=== PATIENT | female | born 1950 | race Caucasian/White ===

== ENCOUNTER 2016-10-17 02:51 | Emergency (ER) | payer MEDICARE, OTHER ==
[~2016-10-17] VITALS: Ht 167.6 cm; Wt 90.0 kg
[2016-10-17] MEDS ORDERED: SODIUM CHLORIDE FLUSH 10ML SYR IVF ONE (03:30)
[2016-10-17 03:43] LABS: HEMATOCRIT 34.3 % (34.6-47.8); WHITE BLOOD COUNT 7.7 x10^3/uL (3.4-10)
[2016-10-17 03:56] LABS: ASPARTATE AMINO TRANSFERASE 17 U/L (15-37); BLOOD UREA NITROGEN 25 mg/dL (7-18)
[2016-10-17 04:03] LABS: IS PT STATUS REG ER OR PRE ER? YES
[2016-10-17] MEDS ORDERED: FUROSEMIDE 20 MG/2 ML ONE (04:29)
[2016-10-17] MEDS ORDERED: FUROSEMIDE 40 MG/4 ML IV ONE (04:30)
[2016-10-17 06:12] VITALS: BP 144/57
== END 2016-10-17 06:13 | disposition home or self-care (01) ==
LOC: ED 06:07
DX: I11.0 Hypertensive heart disease with heart failure (principal); I50.9 Heart failure, unspecified; R60.0 Localized edema; Z88.0 Allergy status to penicillin; Z88.8 Allergy status to other drugs, medicaments and biological substances; E11.9 Type 2 diabetes mellitus without complications; Z95.5 Presence of coronary angioplasty implant and graft
CPT/HCPCS: 36415; 71010; 80053; 83880; 84484; 85025; 85610; 85730; 93005; 96374; 99285; J1940

== ENCOUNTER 2017-02-25 21:44 | Inpatient (IN) | payer MEDICARE, OTHER ==
[~2017-02-25] VITALS: Ht 167.6 cm; Wt 97.1 kg
[2017-02-25] MEDS ORDERED: ASPIRIN 81 MG TABLET CHEW PO ONE (23:00)
[2017-02-25] MEDS ORDERED: MORPHINE SULFATE 4 MG/ML, 1ML IVPush PRN (23:00)
[2017-02-25] MEDS ORDERED: ONDANSETRON 2MG/ML, 2ML IVPush ONE (23:00)
[2017-02-25 23:02] LABS: HEMATOCRIT 32.1 % (34.6-47.8); HEMOGLOBIN 10.8 g/dL (11.7-16.4)
[2017-02-25] MEDS ORDERED: MORPHINE SULFATE 4 MG/ML, 1ML ONE (23:04)
[2017-02-25] MEDS ORDERED: ONDANSETRON 2MG/ML, 2ML ONE (23:05)
[2017-02-25 23:22] LABS: BLOOD UREA NITROGEN 32 mg/dL (7-18)
[2017-02-25 23:25] LABS: IS PT STATUS REG ER OR PRE ER? YES
[2017-02-25] MEDS ORDERED: OMNIPAQUE 350 MG/ML, 100ML BOTTLE ONE (23:49)
[2017-02-26] MEDS ORDERED: SODIUM CHLORIDE 0.9%, 500ML IVBOLUS ONE
[2017-02-26] MEDS ORDERED: FLUO40CA9 PO (00:46)
[2017-02-26] MEDS ORDERED: LISI5TAB7 PO (00:47)
[2017-02-26] MEDS ORDERED: FURO-92 PO (00:47)
[2017-02-26] MEDS ORDERED: RESTORIL (00:48)
[2017-02-26] MEDS ORDERED: PANT40TA5 PO (00:48)
[2017-02-26] MEDS ORDERED: ASPI-496 PO (00:49)
[2017-02-26] MEDS ORDERED: NORT50CA PO (00:50)
[2017-02-26] MEDS ORDERED: AMLODIPINE (00:50)
[2017-02-26] MEDS ORDERED: ATOR40TA78 PO (00:51)
[2017-02-26] MEDS ORDERED: ENOXAPARIN 80 MG/0.8 ML ONE (00:57)
[2017-02-26] MEDS ORDERED: ENOXAPARIN 80 MG/0.8 ML SQ ONE (01:00)
[2017-02-26] MEDS ORDERED: NITROGLYCERIN SINGLE TAB 0.4 MG SL PRN (01:00)
[2017-02-26 02:00] VITALS: BP 116/56
[2017-02-26 02:03] VITALS: BP 116/56
[2017-02-26] MEDS ORDERED: hydrALAzine 20 MG/ML, 1ML IVPush PRN (04:30)
[2017-02-26] MEDS ORDERED: morphine SULFATE 10 MG/ML, 1ML IVPush PRN (04:30)
[2017-02-26] MEDS ORDERED: OXYcodone IR 5MG TABLET PO PRN (04:30)
[2017-02-26] MEDS ORDERED: HEPARIN 5,000 UNITS/ML, 1ML SQ SCH (04:30)
[2017-02-26] MEDS ORDERED: ENALAPRILAT 1.25 MG/ML, 2ML IVPush PRN (04:30)
[2017-02-26] MEDS ORDERED: POLYETHYLENE GLYCOL 17 GM PACKET PO PRN (04:30)
[2017-02-26] MEDS ORDERED: BISACODYL 10 MG SUPP PR PRN (04:30)
[2017-02-26] MEDS: ACETAMINOPHEN 325 MG TABLET PO PRN ×2 (04:45→21:51)
[2017-02-26] MEDS: ONDANSETRON 2MG/ML, 2ML IVPush PRN ×3 (04:45→21:47)
[2017-02-26] MEDS: FUROSEMIDE 20 MG/2 ML IV SCH ×3 (05:10→17:56)
[2017-02-26] MEDS: ASPIRIN 325 MG TABLET EC PO SCH (05:10)
[2017-02-26 06:05] LABS: BLOOD UREA NITROGEN 28 mg/dL (7-18)
[2017-02-26 06:11] LABS: ASPARTATE AMINO TRANSFERASE 35 U/L (15-37)
[2017-02-26 06:14] LABS: IS PT STATUS REG ER OR PRE ER? NO
[2017-02-26 06:41] LABS: RAPID INFLUENZA A Negative (Negative); RAPID INFLUENZA B Negative (Negative)
[2017-02-26 06:51] LABS: HEMATOCRIT 30.3 % (34.6-47.8); HEMOGLOBIN 10.2 g/dL (11.7-16.4); WHITE BLOOD COUNT 7.1 x10^3/uL (3.4-10)
[2017-02-26] MEDS: INSULIN ASPART 100 UNITS/ML, PEN SQ-INSULIN SCH ×4 (07:00→21:45)
[2017-02-26 07:40] VITALS: BP 103/59
[2017-02-26] MEDS: DOXYCYCLINE 100MG TABLET PO SCH ×2 (08:12→21:50)
[2017-02-26] MEDS: FLUOXETINE 20 MG CAPSULE PO SCH (08:12)
[2017-02-26] MEDS: PANTOPROZOLE 40MG TABLET PO SCH (08:13)
[2017-02-26] MEDS: SODIUM CHLORIDE 0.9% 1,000 ML IV SCH ×3 (09:39→21:49)
[2017-02-26 11:47] VITALS: BP 92/50
[2017-02-26 12:27] LABS: IS PT STATUS REG ER OR PRE ER? NO
[2017-02-26] MEDS ORDERED: FENTANYL PF 100 MCG/2ML ONE (15:02)
[2017-02-26] MEDS ORDERED: BIVALIRUDIN 250 MG ONE (15:02)
[2017-02-26] MEDS ORDERED: HEPARIN 1,000 UNITS/ML, 10ML ONE (15:02)
[2017-02-26] MEDS ORDERED: VERAPAMIL 2.5 MG/ML, 2ML ONE (15:02)
[2017-02-26] MEDS ORDERED: MIDAZOLAM 1 MG/ML, 5ML ONE (15:02)
[2017-02-26] MEDS ORDERED: LIDOCAINE 2%, 20ML ONE (15:02)
[2017-02-26] MEDS ORDERED: ONDANSETRON 2MG/ML, 2ML ONE (15:03)
[2017-02-26] MEDS ORDERED: FUROSEMIDE 40 MG/4 ML ONE ×2 (15:33→15:54)
[2017-02-26] MEDS ORDERED: BIVALIRUDIN 250 MG in DEXTROSE 5% 50 ML IV SCH (16:05)
[2017-02-26] MEDS ORDERED: PRASUGREL 10 MG TABLET ONE (16:13)
[2017-02-26 19:06] VITALS: BP 150/54
[2017-02-26] MEDS: SENNA/DOCUSATE TABLET PO SCH (21:50)
[2017-02-26] MEDS: TEMAZEPAM 30 MG CAPSULE PO PRN (21:51)
[2017-02-26] MEDS: ATORVASTATIN 40 MG TABLET PO SCH (21:51)
[2017-02-26] MEDS: NORTRIPTYLINE 25 MG CAPSULE PO SCH (21:51)
[2017-02-26 23:26] LABS: IS PT STATUS REG ER OR PRE ER? NO
[2017-02-27 01:31] VITALS: BP 121/63
[2017-02-27] MEDS: SODIUM CHLORIDE 0.9% 1,000 ML IV SCH (04:35)
[2017-02-27] MEDS: ACETAMINOPHEN 325 MG TABLET PO PRN ×2 (04:42→11:38)
[2017-02-27] MEDS: ASPIRIN 325 MG TABLET EC PO SCH (04:42)
[2017-02-27 06:10] LABS: HEMATOCRIT 30.4 % (34.6-47.8); HEMOGLOBIN 10.2 g/dL (11.7-16.4)
[2017-02-27 06:24] LABS: BLOOD UREA NITROGEN 29 mg/dL (7-18)
[2017-02-27 07:05] VITALS: BP 118/57
[2017-02-27] MEDS: PRASUGREL 10 MG TABLET PO SCH (07:56)
[2017-02-27] MEDS: SENNA/DOCUSATE TABLET PO SCH (07:56)
[2017-02-27] MEDS: PANTOPROZOLE 40MG TABLET PO SCH (07:57)
[2017-02-27] MEDS: FLUOXETINE 20 MG CAPSULE PO SCH (07:57)
[2017-02-27] MEDS: FUROSEMIDE 20 MG/2 ML IV SCH ×2 (07:57→16:53)
[2017-02-27] MEDS: DOXYCYCLINE 100MG TABLET PO SCH (07:57)
[2017-02-27] MEDS: INSULIN ASPART 100 UNITS/ML, PEN SQ-INSULIN SCH ×4 (08:51→20:49)
[2017-02-27 13:11] VITALS: BP 100/51
[2017-02-27] MEDS ORDERED: LEVOFLOXACIN 750 MG TABLET PO SCH (15:30)
[2017-02-27] MEDS ORDERED: GUAIFENESIN/DM 100-10MG, 5ML UDC PO PRN (15:30)
[2017-02-27 20:43] VITALS: BP 140/55
[2017-02-27] MEDS: NORTRIPTYLINE 25 MG CAPSULE PO SCH (20:46)
[2017-02-27] MEDS: TEMAZEPAM 30 MG CAPSULE PO PRN (20:46)
[2017-02-27] MEDS: ATORVASTATIN 40 MG TABLET PO SCH (20:46)
[2017-02-28 01:05] VITALS: BP 139/69
[2017-02-28 05:46] LABS: HEMOGLOBIN 8.8 g/dL (11.7-16.4); WHITE BLOOD COUNT 5.9 x10^3/uL (3.4-10)
[2017-02-28 05:49] LABS: BLOOD UREA NITROGEN 45 mg/dL (7-18)
[2017-02-28 07:35] VITALS: BP 113/57
[2017-02-28] MEDS: INSULIN ASPART 100 UNITS/ML, PEN SQ-INSULIN SCH ×4 (08:28→22:08)
[2017-02-28] MEDS: ASPIRIN 325 MG TABLET EC PO SCH (08:30)
[2017-02-28] MEDS: FLUOXETINE 20 MG CAPSULE PO SCH (08:30)
[2017-02-28] MEDS: PANTOPROZOLE 40MG TABLET PO SCH (08:34)
[2017-02-28] MEDS: PRASUGREL 10 MG TABLET PO SCH (08:34)
[2017-02-28] MEDS: SENNA/DOCUSATE TABLET PO SCH (09:12)
[2017-02-28] MEDS ORDERED: PHARMACY MAY ADJ FOR RENAL FX MC PRN (10:30)
[2017-02-28] MEDS: DOXYCYCLINE 100MG TABLET PO SCH ×2 (11:32→22:08)
[2017-02-28] MEDS: ONDANSETRON 2MG/ML, 2ML IVPush PRN (11:37)
[2017-02-28 15:00] VITALS: BP 129/66
[2017-02-28] MEDS: ACETAMINOPHEN 325 MG TABLET PO PRN ×2 (15:18→22:36)
[2017-02-28 20:13] VITALS: BP 129/65
[2017-02-28] MEDS: ATORVASTATIN 40 MG TABLET PO SCH (22:08)
[2017-02-28] MEDS: NORTRIPTYLINE 25 MG CAPSULE PO SCH (22:08)
[2017-02-28] MEDS: TEMAZEPAM 30 MG CAPSULE PO PRN (22:28)
[2017-03-01 02:37] VITALS: BP 139/63
[2017-03-01 05:16] LABS: HEMATOCRIT 27.2 % (34.6-47.8); HEMOGLOBIN 9.1 g/dL (11.7-16.4); WHITE BLOOD COUNT 7.2 x10^3/uL (3.4-10)
[2017-03-01 05:47] LABS: BLOOD UREA NITROGEN 40 mg/dL (7-18); FERRITIN 121.8 ng/mL (8-252); TOTAL IRON BINDING CAPACITY 409 mcg/dL (250-450); TRANSFERRIN 211 mg/dL (200-360)
[2017-03-01 08:45] VITALS: BP 155/63
[2017-03-01] MEDS: SENNA/DOCUSATE TABLET PO SCH (09:00)
[2017-03-01] MEDS: INSULIN ASPART 100 UNITS/ML, PEN SQ-INSULIN SCH ×4 (09:23→21:15)
[2017-03-01] MEDS: ASPIRIN 325 MG TABLET EC PO SCH (09:23)
[2017-03-01] MEDS: DOXYCYCLINE 100MG TABLET PO SCH ×2 (09:23→21:14)
[2017-03-01] MEDS: PRASUGREL 10 MG TABLET PO SCH (09:23)
[2017-03-01] MEDS: PANTOPROZOLE 40MG TABLET PO SCH (09:23)
[2017-03-01] MEDS: FLUOXETINE 20 MG CAPSULE PO SCH (09:24)
[2017-03-01 15:00] VITALS: BP 138/58
[2017-03-01] MEDS: SODIUM CHLORIDE 0.9% 1,000 ML IV SCH (17:15)
[2017-03-01 20:06] VITALS: BP 155/61
[2017-03-01] MEDS: TEMAZEPAM 30 MG CAPSULE PO PRN (21:14)
[2017-03-01] MEDS: NORTRIPTYLINE 25 MG CAPSULE PO SCH (21:14)
[2017-03-01] MEDS: ATORVASTATIN 40 MG TABLET PO SCH (21:14)
[2017-03-01] MEDS: ACETAMINOPHEN 325 MG TABLET PO PRN (23:44)
[2017-03-02 01:19] VITALS: BP 138/65
[2017-03-02] MEDS: ASPIRIN 325 MG TABLET EC PO SCH (05:40)
[2017-03-02 08:15] VITALS: BP 135/54
[2017-03-02] MEDS: SENNA/DOCUSATE TABLET PO SCH (09:00)
[2017-03-02] MEDS: INSULIN ASPART 100 UNITS/ML, PEN SQ-INSULIN SCH ×3 (09:23→16:00)
[2017-03-02] MEDS: FLUOXETINE 20 MG CAPSULE PO SCH (09:27)
[2017-03-02] MEDS: DOXYCYCLINE 100MG TABLET PO SCH (09:27)
[2017-03-02] MEDS: PANTOPROZOLE 40MG TABLET PO SCH (09:27)
[2017-03-02] MEDS: PRASUGREL 10 MG TABLET PO SCH (09:27)
[2017-03-02] MEDS: SODIUM CHLORIDE 0.9% 1,000 ML IV SCH (11:39)
[2017-03-02] MEDS ORDERED: DOXY100T PO (14:28)
[2017-03-02] MEDS ORDERED: PRAS10TA4 PO (14:28)
[2017-03-02] MEDS ORDERED: POTASSIUM CHLORIDE 20 MEQ TAB.ER.PRT PO ONE (14:30)
[2017-03-02] MEDS ORDERED: FUROSEMIDE 20 MG/2 ML IV ONE (14:30)
[2017-03-02] MEDS ORDERED: LOPERAMIDE 2 MG CAPSULE ONE (14:56)
[2017-03-02] MEDS: LOPERAMIDE 2 MG CAPSULE PO PRN ×2 (15:00→15:01)
[2017-03-02 15:50] VITALS: BP 149/60
[2017-03-02] MEDS ORDERED: CARV3.122 PO (18:18)
[2017-03-02] MEDS ORDERED: GUAIFENESIN ER 600 MG TABLET PO SCH (21:00)
== END 2017-03-02 18:51 | disposition home or self-care (01) | DRG 246 ==
LOC: ED 02-26 01:25 → EDIP 02-26 01:36 → 5SO 02-26 01:46
PROVIDERS: ADMIT Internal Medicine; ATTEND Internal Medicine
PROC: 027034Z Dilation of Coronary Artery, One Artery with Drug-eluting Intraluminal Device, Percutaneous Approach (ICD-10-PCS; principal; 2017-02-26)
PROC: 4A023N7 Measurement of Cardiac Sampling and Pressure, Left Heart, Percutaneous Approach (ICD-10-PCS; 2017-02-26)
PROC: B2111ZZ Fluoroscopy of Multiple Coronary Arteries using Low Osmolar Contrast (ICD-10-PCS; 2017-02-26)
PROC: B2151ZZ Fluoroscopy of Left Heart using Low Osmolar Contrast (ICD-10-PCS; 2017-02-26)
PROC: 5A09357 Assistance with Respiratory Ventilation, Less than 24 Consecutive Hours, Continuous Positive Airway Pressure (ICD-10-PCS; 2017-03-02)
DX: I21.4 Non-ST elevation (NSTEMI) myocardial infarction (principal); I50.43 Acute on chronic combined systolic (congestive) and diastolic (congestive) heart failure; N17.0 Acute kidney failure with tubular necrosis; J18.9 Pneumonia, unspecified organism; Z99.81 Dependence on supplemental oxygen; I11.0 Hypertensive heart disease with heart failure; E87.1 Hypo-osmolality and hyponatremia; D64.9 Anemia, unspecified; E11.9 Type 2 diabetes mellitus without complications; N17.9 Acute kidney failure, unspecified; E66.9 Obesity, unspecified; K21.9 Gastro-esophageal reflux disease without esophagitis; Z68.34 Body mass index [BMI] 34.0-34.9, adult; E78.5 Hyperlipidemia, unspecified; F32.9 Major depressive disorder, single episode, unspecified; H54.61 Unqualified visual loss, right eye, normal vision left eye; I25.10 Atherosclerotic heart disease of native coronary artery without angina pectoris; I35.8 Other nonrheumatic aortic valve disorders; J06.9 Acute upper respiratory infection, unspecified; J20.9 Acute bronchitis, unspecified; Z79.82 Long term (current) use of aspirin; Z90.710 Acquired absence of both cervix and uterus; Z88.0 Allergy status to penicillin; Z88.5 Allergy status to narcotic agent; Z88.8 Allergy status to other drugs, medicaments and biological substances
CPT/HCPCS: 36415; 71010; 71275; 80048; 80053; 81003; 82040; 82728; 82962; 83036; 83540; 83550; 83880; 84439; 84443; 84466; 84484; 85014; 85018; 85025; 87081; 87324; 87400; 87880; 93005; 93458; 96361; 96372; 96374; 96375; 99156; 99157; C1769; C1894; C8929; C9600; J0583; J1644; J1650; J1815; J1940; J2250; J2405; J3010; J3490; Q9967; C1725; C1874; C1887; J2270; J7030; J7040